=== PATIENT | male | born 1975 | race African-American/Black ===

== ENCOUNTER 2020-10-22 08:01 | Inpatient (IN) | payer OTHER, SELFPAY ==
[2020-10-22] MEDS ORDERED: Labetalol HCl 100 MG/20 ML VIAL ONE (08:31)
[2020-10-22] MEDS ORDERED: Calcium Carbonate 500 MG ChewTAB PO PRN (10:06)
[2020-10-22] MEDS ORDERED: Ondansetron PF 4 MG/2 ML Vial IVP PRN (10:06)
[2020-10-22] MEDS ORDERED: Ondansetron ODT 4 MG TAB PO PRN (10:06)
[2020-10-22] MEDS ORDERED: Nitroglycerin 0.4 MG TAB (25 Tab Bottle) SL PRN ×2 (10:09→14:09)
[2020-10-22] MEDS ORDERED: Sodium Chloride 0.9% 1,000 ML IV SCH ×2 (10:15→14:15)
[2020-10-22 10:19] LABS: CKMB 56.4 ng/mL (0-6.6)
[2020-10-22 10:46] LABS: Anion Gap 13 mmol/L (10-20); BUN (Urea Nitrogen) 8 mg/dL (8.9-20.6); Calc. Creatinine Clearance 0 mL/min (70-130); Calcium 9.1 mg/dL (7.8-10.44); Carbon Dioxide 25 mmol/L (22-29); Chloride 105 mmol/L (98-107); Glucose 112 mg/dL (70-105); Magnesium 1.8 mg/dL (1.6-2.6); Phosphorus 2.9 mg/dL (2.3-4.7); Potassium 3.2 mmol/L (3.5-5.1); Sodium 140 mmol/L (136-145)
[2020-10-22] MEDS ORDERED: cloNIDine 0.1 MG TAB ONE (10:58)
[2020-10-22] MEDS ORDERED: Potassium Chloride 20 MEQ TAB PO SCH (11:00)
[2020-10-22] MEDS ORDERED: NS 0.9% w/ 20 MEQ KCL 1,000 ML/1,000 ML BAG IV SCH ×2 (11:00→19:00)
[2020-10-22] MEDS ORDERED: Acetaminophen 500 MG TAB ONE (11:10)
[2020-10-22] MEDS ORDERED: Magnesium 2 GM/50 ML BAG (IN WATER) ONE (11:53)
[2020-10-22] MEDS ORDERED: Nitroglycerin 2% Ointment 1 INCH/1 GM Packet ONE (11:53)
[2020-10-22] MEDS ORDERED: NS 0.9% w/ 20 MEQ KCL 1,000 ML ONE (11:53)
[2020-10-22 12:24] LABS: Troponin I 5.845 ng/mL (< 0.028)
[2020-10-22] MEDS ORDERED: Heparin 10,000 UNITS/ 10 ML VIAL ONE (12:28)
[2020-10-22] MEDS ORDERED: Verapamil 5 MG/2 ML VIAL ONE (12:28)
[2020-10-22] MEDS ORDERED: Adenosine 6 MG/2 ML VIAL ONE (12:28)
[2020-10-22] MEDS ORDERED: Lidocaine 1% (PF) 30 ML VIAL ONE (12:28)
[2020-10-22] MEDS ORDERED: Nitroglycerin 100MG/250ML BOT 250 ML ONE (12:29)
[2020-10-22 12:55] LABS: SARS-CoV-2 NAA Rapid Test Not Detected (NotDetected)
[2020-10-22] MEDS ORDERED: Midazolam HCl 2 mg/2 ml Vial ONE (13:13)
[2020-10-22] MEDS ORDERED: Fentanyl 100 MCG/2 ML VIAL ONE (13:14)
[2020-10-22] MEDS ORDERED: Atropine Sulfate 1 mg/10 ml Syringe ONE (13:27)
[2020-10-22] MEDS ORDERED: Atropine Sulfate 1 mg/1 ml Vial ONE (13:27)
[2020-10-22] MEDS ORDERED: Carvedilol 6.25 MG TAB PO SCH (13:30)
[2020-10-22] MEDS ORDERED: Sodium Chloride 0.9% 200 ML IV PRN (14:09)
[2020-10-22] MEDS ORDERED: Acetaminophen/Codeine 30-300mg Tablet PO PRN (14:09)
[2020-10-22] MEDS ORDERED: Clopidogrel Bisulfate 300 MG TAB PO SCH (14:15)
[2020-10-22] MEDS ORDERED: Acetaminophen 325 MG TAB ONE (14:41)
[2020-10-22] MEDS: Acetaminophen 325 MG TAB PO PRN (14:43)
[2020-10-22] MEDS ORDERED: Magnesium 2 GM/50 ML 2 GM in Premix Bag 1 BAG IVPB SCH (14:45)
[2020-10-22] MEDS ORDERED: Electrolyte Replacement Protocol 1 EACH FS SCH (15:15)
[2020-10-22] MEDS ORDERED: Clopidogrel Bisulfate 300 MG TAB ONE (15:34)
[2020-10-22] MEDS ORDERED: Carvedilol 3.125 MG TAB ONE (15:35)
[2020-10-22] MEDS ORDERED: Electrolyte Replacement Protocol FS PRN (16:30)
[2020-10-22] MEDS ORDERED: Carvedilol 3.125 MG TAB PO SCH (17:00)
[2020-10-22] MEDS: Carvedilol 6.25 MG TAB PO SCH (18:25)
[2020-10-22] MEDS ORDERED: Nitroglycerin 2% Ointment 1 INCH/1 GM Packet TOP SCH (20:00)
[2020-10-22] MEDS: Senokot S 8.6-50 MG TAB PO SCH (20:41)
[2020-10-22] MEDS: cloNIDine 0.1 MG TAB PO SCH (20:41)
[2020-10-22] MEDS: Famotidine 20 MG TAB PO SCH (20:42)
[2020-10-22] MEDS: Enoxaparin Sodium 100 MG/ML SYRINGE SC SCH (20:42)
[2020-10-22] MEDS: Atorvastatin Calcium 40 MG TAB PO SCH (20:42)
[2020-10-22] MEDS: Famotidine/PF 20 mg/2ml Vial SLOW IVP SCH (20:46)
[2020-10-22 22:23] VITALS: BMI 35.2
[2020-10-23 04:43] LABS: #Basophils 0.1 thou/uL (0.0-0.2); #Eosinphils 0.3 thou/uL (0.0-0.7); #Lymphocytes 3.7 thou/uL (1.20-3.40); #Monocytes 0.8 thou/uL (0.11-0.59); #Neutrophils 2.7 thou/uL (1.40-6.50); %Basophils 1.5 % (0.0-1.0); %Lymphocytes 48.5 % (21.0-51.0); %Monocytes 10.7 % (0.0-10.0); %Neutrophils 35.3 % (42.0-75.0); Hemoglobin 13.6 g/dL (14.0-18.0); Mean Corpuscular HGB CONC 34.8 g/dL (32.0-36.0); Mean Corpuscular Hemoglobin 30.6 pg (27.0-31.0); Platelet Count 235 thou/uL (130-400); Red Blood Cell (RBC) Count 4.45 mill/uL (4.70-6.10); White Blood Cell (WBC) Count 7.7 thou/uL (4.8-10.8)
[2020-10-23 05:05] LABS: ALT (SGPT) 23 U/L (8-55); AST (SGOT) 45 U/L (5-34); Albumin 3.6 g/dL (3.5-5.0); Alkaline Phosphatase 113 U/L (40-110); Anion Gap 11 mmol/L (10-20); BUN (Urea Nitrogen) 8 mg/dL (8.9-20.6); Bilirubin, Total 0.4 mg/dL (0.2-1.2); Calc. Creatinine Clearance 164 mL/min (70-130); Calcium 8.8 mg/dL (7.8-10.44); Carbon Dioxide 25 mmol/L (22-29); Cardiac Risk 6.2 (Less than 4.5); Chloride 108 mmol/L (98-107); Cholesterol 167 mg/dl (< 200 Desired); Globulin 3.1 g/dL (2.4-3.5); Glucose 138 mg/dL (70-105); HDL Cholesterol 27 mg/dL (>60 Neg Risk); LDL Cholesterol, Calculated 88 mg/dL; Magnesium 2.2 mg/dL (1.6-2.6); Potassium 3.5 mmol/L (3.5-5.1); Protein, Total 6.7 g/dL (6.0-8.3); Sodium 140 mmol/L (136-145); Triglycerides 258 mg/dL (Less than 150)
[2020-10-23] MEDS ORDERED: Nitroglycerin 2% Ointment 1 INCH/1 GM Packet TOP SCH (06:00)
[2020-10-23] MEDS: Famotidine/PF 20 mg/2ml Vial SLOW IVP SCH ×2 (08:19→20:12)
[2020-10-23] MEDS: Aspirin 81 mg Enteric Coated Tablet PO SCH (08:22)
[2020-10-23] MEDS: cloNIDine 0.1 MG TAB PO SCH ×2 (08:23→20:11)
[2020-10-23] MEDS: Famotidine 20 MG TAB PO SCH ×2 (08:23→20:12)
[2020-10-23] MEDS: Carvedilol 6.25 MG TAB PO SCH ×2 (08:23→16:10)
[2020-10-23] MEDS: Senokot S 8.6-50 MG TAB PO SCH ×2 (08:24→20:11)
[2020-10-23] MEDS: Enoxaparin Sodium 100 MG/ML SYRINGE SC SCH (08:24)
[2020-10-23] MEDS: Amlodipine 10 MG TAB PO SCH (08:24)
[2020-10-23] MEDS: Clopidogrel Bisulfate 75 MG TAB PO SCH (08:24)
[2020-10-23] MEDS ORDERED: Aspirin 325 mg Enteric Coated Tablet PO SCH (09:00)
[2020-10-23] MEDS: Acetaminophen 325 MG TAB PO PRN (14:27)
[2020-10-23] MEDS: Atorvastatin Calcium 40 MG TAB PO SCH (20:11)
[2020-10-24] MEDS: Aspirin 81 mg Enteric Coated Tablet PO SCH (08:48)
[2020-10-24] MEDS: Carvedilol 6.25 MG TAB PO SCH (08:48)
[2020-10-24] MEDS: cloNIDine 0.1 MG TAB PO SCH (08:48)
[2020-10-24] MEDS: Famotidine 20 MG TAB PO SCH (08:49)
[2020-10-24] MEDS: Clopidogrel Bisulfate 75 MG TAB PO SCH (08:49)
[2020-10-24] MEDS: Amlodipine 10 MG TAB PO SCH (08:49)
[2020-10-24] MEDS: Famotidine/PF 20 mg/2ml Vial SLOW IVP SCH (08:50)
[2020-10-24] MEDS: Senokot S 8.6-50 MG TAB PO SCH (08:51)
[2020-10-24 11:45] VITALS: TEMP 98.6
[2020-10-24 12:18] VITALS: BP 137/90
== END 2020-10-24 14:08 | disposition home or self-care (01) | DRG 282 ==
LOC: ERS 08:01 → ERHOLD 10:59 → CCU 13:12 → 2NO 19:47
PROVIDERS: ADMIT Internal Medicine; ATTEND Internal Medicine
PROC: 4A023N7 Measurement of Cardiac Sampling and Pressure, Left Heart, Percutaneous Approach (ICD-10-PCS; principal; 2020-10-22)
PROC: B2151ZZ Fluoroscopy of Left Heart using Low Osmolar Contrast (ICD-10-PCS; 2020-10-22)
PROC: B2111ZZ Fluoroscopy of Multiple Coronary Arteries using Low Osmolar Contrast (ICD-10-PCS; 2020-10-22)
DX: I21.4 Non-ST elevation (NSTEMI) myocardial infarction (principal); Z20.822 Contact with and (suspected) exposure to COVID-19; F17.210 Nicotine dependence, cigarettes, uncomplicated; I10 Essential (primary) hypertension; I25.110 Atherosclerotic heart disease of native coronary artery with unstable angina pectoris; I16.0 Hypertensive urgency; E83.42 Hypomagnesemia; E87.6 Hypokalemia; E78.5 Hyperlipidemia, unspecified; Z88.5 Allergy status to narcotic agent; Z79.899 Other long term (current) drug therapy
CPT/HCPCS: 36415; 80048; 80053; 80061; 82553; 83735; 84100; 85025; 93005; 93458; 93798; 96365; 96375; 99152; 99153; J0153; J0461; J1644; J1650; J2001; J2250; J3010; J3475; J3480; U0002; U0005

== ENCOUNTER 2022-12-19 11:48 | Emergency (ER) | payer OTHER ==
[2022-12-19] MEDS ORDERED: Ketorolac Tromethamine 30 MG/ML VIAL ONE (12:43)
[2022-12-19] MEDS ORDERED: Ondansetron PF 4 MG/2 ML Vial ONE (12:43)
[2022-12-19 12:57] LABS: #Basophils 0.1 thou/uL (0.0-0.2); #Eosinphils 0.1 thou/uL (0.0-0.7); #Monocytes 1.5 thou/uL (0.11-0.59); %Basophils 0.5 % (0.0-1.0); %Eosinophils 1.5 % (0.0-10.0); %Lymphocytes 26.8 % (21.0-51.0); %Monocytes 16.6 % (0.0-10.0); %Neutrophils 54.3 % (42.0-75.0); Hematocrit 39.6 % (42.0-52.0); Hemoglobin 13.5 g/dL (14.0-18.0); Mean Corpuscular HGB CONC 34.1 g/dL (32.0-36.0); Mean Corpuscular Hemoglobin 29.3 pg (27.0-31.0); Mean Corpuscular Volume 86.1 fl (78.0-98.0); Mean Platelet Volume 9.9 fL (7.4-10.4); Platelet Count 197 10x3/uL (130-400); RBC Distribution Width 14.8 % (11.5-14.5); White Blood Cell (WBC) Count 9.3 10x3/uL (4.8-10.8)
[2022-12-19 13:06] LABS: ALT (SGPT) 23 U/L (8-55); AST (SGOT) 20 U/L (5-34); Albumin 4.1 g/dL (3.5-5.0); Alkaline Phosphatase 91 U/L (40-110); Anion Gap 14 mmol/L (10-20); BUN (Urea Nitrogen) 11 mg/dL (8.9-20.6); Bilirubin, Total 0.5 mg/dL (0.2-1.2); Calc. Creatinine Clearance 0 mL/min (70-130); Calcium 8.9 mg/dL (7.8-10.44); Carbon Dioxide 24 mmol/L (22-29); Chloride 102 mmol/L (98-107); Estimated GFR 96; Globulin 3.3 g/dL (2.4-3.5); Glucose 113 mg/dL (70-105); Potassium 3.4 mmol/L (3.5-5.1); Protein, Total 7.4 g/dL (6.0-8.3); Sodium 137 mmol/L (136-145)
[2022-12-19 13:47] LABS: SARS-CoV-2 NAA Rapid Test Not Detected (NotDetected)
[2022-12-19 14:08] LABS: Bacteria/HPF None Seen HPF (None Seen); Bilirubin Negative (Negative); Blood, Urine 1+ (Negative); CAUTI Indications for Culture Fever or rigors; Clarity Clear (Clear); Glucose, Urine (Dipstick) Normal (Negative); Ketone, Urine Negative (Negative); Leukocyte Negative Leu/uL (Negative); Nitrite Negative (Negative); Protein, Urine (Dipstick) 70 mg/dL (Neg-Trace); Specific Gravity, Urine 1.023 (1.002-1.036); Squamous Epithelial None Seen HPF (0-3); Urobilinogen Normal mg/dL (Less than 2); pH, Urine 6.5 (5.0-9.0)
[2022-12-19 14:09] LABS: Urine Culture Reflex No No
[2022-12-19] MEDS ORDERED: Acetaminophen 500 MG TAB ONE (14:54)
== END 2022-12-19 15:33 | disposition home or self-care (01) ==
LOC: ERS 11:48
DX: S00.86XA Insect bite (nonvenomous) of other part of head, initial encounter (principal); B34.9 Viral infection, unspecified; R50.9 Fever, unspecified; E78.5 Hyperlipidemia, unspecified; I25.10 Atherosclerotic heart disease of native coronary artery without angina pectoris; I10 Essential (primary) hypertension; E11.9 Type 2 diabetes mellitus without complications; Z87.891 Personal history of nicotine dependence; Z79.899 Other long term (current) drug therapy; Z79.84 Long term (current) use of oral hypoglycemic drugs; W57.XXXA Bitten or stung by nonvenomous insect and other nonvenomous arthropods, initial encounter
CPT/HCPCS: 36415; 80053; 81001; 83605; 85025; 87040; 87081; 87430; 96374; 96375; J1885; J2405